=== PATIENT | female | born 2000 | race Caucasian/White ===

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

== ENCOUNTER 2023-08-02 10:20 | Emergency (ER) | payer SELFPAY ==
[2023-08-02] MEDS: Tetracaine HCl/PF 0.5% 4 ML Bottle EYERT ONE (11:10)
[2023-08-02] MEDS: Fluorescein 1 MG Ophth Strip EYERT ONE (11:10)
[2023-08-02] MEDS: Gentamicin 0.3% Ophth Soln 5 ML Bottle EYERT SCH (11:11)
== END 2023-08-02 11:10 | disposition home or self-care (01) ==
LOC: CC.ED 10:20
DX: S05.01XA Injury of conjunctiva and corneal abrasion without foreign body, right eye, initial encounter (principal); Z88.0 Allergy status to penicillin; W54.8XXA Other contact with dog, initial encounter
CPT/HCPCS: 99283